=== PATIENT | female | born 1940 | race Caucasian/White ===

== ENCOUNTER 2016-09-10 12:25 | Outpatient (CLI) | payer MEDICARE, OTHER | END 2016-09-10 23:59 | DX: L89.139 Pressure ulcer of right lower back, unspecified stage (principal) ==

== ENCOUNTER 2016-09-26 | Outpatient (CLI) | payer MEDICARE, OTHER | END 2016-09-26 04:40 | disposition critical access hospital (66) | CPT/HCPCS: A0425; A0429 ==

== ENCOUNTER 2016-09-26 | Outpatient (CLI) | payer MEDICARE, OTHER | END 2016-09-26 17:00 | disposition short-term general hospital (02) | CPT/HCPCS: A0170; A0425; A0426 ==